=== PATIENT | male | born 1985 | race Caucasian/White ===

== ENCOUNTER 2017-04-18 06:40 | Day surgery (SDC) | payer BC ==
[~2017-04-18 06:40] MED LIST: Lactated Ringers 1,000 ML IV SCH; Sodium Chloride 0.9% 10 ML Syringe FLUSH PRN; Sodium Chloride 0.9% 2.5 ML Syringe FLUSH PRN
[2017-04-18] MEDS ORDERED: Midazolam 1 MG/ML 2 ML SDV ONE (07:15)
[2017-04-18] MEDS ORDERED: fentaNYL 100 MCG/2 ML SDV ONE (07:15)
[2017-04-18] MEDS ORDERED: Propofol 200 MG/20 ML SDV ONE (07:15)
[2017-04-18] MEDS ORDERED: Lidocaine 2% 5 ML SDV ONE (07:15)
[2017-04-18] MEDS ORDERED: Ondansetron 4 MG/2 ML SDV ONE (07:15)
[2017-04-18] MEDS ORDERED: Bupivacaine 0.5% 10 ML SDV ONE (07:20)
[2017-04-18] MEDS ORDERED: Lidocaine 1% 20 ML MDV ONE (07:21)
[2017-04-18] MEDS ORDERED: Heparin Sodium 100 Units/ML 3 ML Syringe ONE (07:21)
[2017-04-18] MEDS ORDERED: Bupivacaine 0.5% 30 ML SDV ONE (07:22)
--- NOTE | 2017-04-18 07:27 | PCM.PREANE ---
Preanesthetic Assessment - Anesthesia/Transfusion/Family Hx Anesthesia History: Prior Anesthesia Without Reaction Family History of Anesthesia Reaction: No Transfusion History: No Prior Transfusion(s) - Review of Systems General: No Symptoms Pulmonary: No Symptoms Cardiovascular: No Symptoms Gastrointestinal: No Symptoms Neurological: No Symptoms Other: Reports: None - Physical Assessment NPO Status Date: 04/17/17 O2 Sat by Pulse Oximetry: 100 Respiratory Rate: 16 Vital Signs: Last Vital Signs Temp 36.4 C 04/18/17 06:56 Pulse 82 04/18/17 06:56 Resp 16 04/18/17 06:56 BP 131/89 04/18/17 06:56 Pulse Ox 100 04/18/17 06:56 Height: 1.7 m Weight: 78.925 kg ASA Class: 2 Mental Status: Alert & Oriented x3 Airway Class: Mallampati = 1 Dentition: Reports: Goodell(s) ROM/Head Extension: Full Lungs: Clear to Auscultation, Normal Respiratory Effort Cardiovascular: Regular Rate, Regular Rhythm - Allergies Allergies/Adverse Reactions: Allergies Allergy/AdvReac Type Severity Reaction Status Date / Time No Known Allergies Allergy Verified 04/13/17 15:56 - Anesthesia Plan Pre-Op Medication Ordered: None - Acknowledgements Anesthesia Type Planned: General Anesthesia Pt an Appropriate Candidate for the Planned Anesthesia: Yes Alternatives and Risks of Anesthesia Discussed w Pt/Guardian: Yes Pt/Guardian Understands and Agrees with Anesthesia Plan: Yes PreAnesthesia Questionnaire HEENT History: Reports: Other (See Below) Other HEENT History: wears glasses Musculoskeletal History: Reports: Fracture Other Musculoskeletal History: fx ankle and stress fx of hip Oncologic (Cancer) History: Reports: Other (See Below) Other Oncologic History: testicular - Past Surgical History Head Surgeries/Procedures: Reports: None Male Surgical History: Reports: Other (See Below) Other Male Surgeries/Procedures: rt orchiectomy and pelvic lymphadecectomy - SUBSTANCE USE Tobacco Use Within Last Twelve Months: Other (See Below) Recreational Drug Use History: No - HOME MEDS Home Medications: Home Meds . [No Known Home Meds] 04/13/17 [History] - CURRENT (IN HOUSE) MEDS Current Meds: Current Medications Lactated Ringer's (Ringers, Lactated) 1,000 mls @ 125 mls/hr IV ASDIRECTED [facility] Last Admin: 04/18/17 06:53 Dose: 125 mls/hr Sodium Chloride (Saline Flush) 10 ml FLUSH ASDIRECTED PRN PRN Reason: Keep Vein Open Sodium Chloride (Saline Flush) 2.5 ml FLUSH ASDIRECTED PRN PRN Reason: Keep Vein Open Discontinued Medications Bupivacaine HCl (Sensorcaine-Mpf 0.5%) Confirm Administered Dose 10 ml .ROUTE .STK-MED ONE Stop: 04/18/17 07:21 Bupivacaine HCl (Marcaine 0.5%) Confirm Administered Dose 30 ml .ROUTE .STK-MED ONE Stop: 04/18/17 07:23 Fentanyl (Sublimaze) Confirm Administered Dose 100 mcg .ROUTE .STK-MED ONE Stop: 04/18/17 07:16 Heparin Sodium (Porcine) (Heparin Lock Flush 100 Units/Ml) Confirm Administered Dose 900 unit .ROUTE .STK-MED ONE Stop: 04/18/17 07:22 Lidocaine (Xylocaine-Mpf 2%) Confirm Administered Dose 5 ml .ROUTE .STK-MED ONE Stop: 04/18/17 07:16 Lidocaine HCl (Xylocaine 1%) Confirm Administered Dose 20 ml .ROUTE .STK-MED ONE Stop: 04/18/17 07:22 Midazolam HCl (Versed 1 Mg/Ml) Confirm Administered Dose 2 mg .ROUTE .STK-MED ONE Stop: 04/18/17 07:16 Ondansetron HCl (Zofran) Confirm Administered Dose 4 mg .ROUTE .STK-MED ONE Stop: 04/18/17 07:16 Propofol (Diprivan 20 Ml) Confirm Administered Dose 200 mg .ROUTE .STK-MED ONE Stop: 04/18/17 07:16
[2017-04-18] MEDS ORDERED: fentaNYL 100 MCG/2 ML SDV IVPUSH PRN (08:27)
[2017-04-18] MEDS ORDERED: Octyl 2-Cyanoacrylate 1 Tube ONE (08:40)
--- NOTE | 2017-04-18 08:54 | PCM.OPNOTE ---
- General Post-Op/Procedure Note Date of Surgery/Procedure: 04/18/17 Operative Procedure(s): Right internal jugular port placement Findings: right internal jugular port placement Pre Op Diagnosis: Testicular cancer Post-Op Diagnosis: Same Anesthesia Technique: MAC Primary Surgeon: Nahomi Cade Condition: Good
--- NOTE | 2017-04-18 09:38 | PCM.POSTAN ---
POST ANESTHESIA ASSESSMENT - MENTAL STATUS Mental Status: Alert, Oriented - RESPIRATORY Respiratory Status: Respiratory Rate WNL, Airway Patent, O2 Saturation Stable - CARDIOVASCULAR CV Status: Pulse Rate WNL, Blood Pressure Stable - GASTROINTESTINAL GI Status: No Symptoms - POST OP HYDRATION Hydration Status: Adequate & Stable
--- NOTE | 2017-04-18 09:39 | PCM48HPAN ---
Post Anesthesia Note - EVALUATION WITHIN 48HRS OF ANESTHETIC Vital Signs in Normal Range: Yes Patient Participated in Evaluation: Yes Respiratory Function Stable: Yes Airway Patent: Yes Cardiovascular Function Stable: Yes Hydration Status Stable: Yes Pain Control Satisfactory: Yes Nausea and Vomiting Control Satisfactory: Yes Mental Status Recovered: Yes
--- NOTE | 2017-04-18 09:53 | OR ---
SURGEON: RICH YUN MD DATE OF PROCEDURE: 04/18/2017 PREOPERATIVE DIAGNOSIS: Testicular cancer. POSTOPERATIVE DIAGNOSIS: Testicular cancer. PROCEDURE PERFORMED: Right internal jugular Port-A-Cath placement. ANESTHESIA: General LMA. ESTIMATED BLOOD LOSS: 10 mL. FINDINGS: Right internal jugular Port-A-Cath placement. COMPLICATIONS: None. INDICATIONS: The patient is a 32-year-old male with testicular cancer with positive nodes. The patient will be starting chemotherapy soon and is in need of a port. We discussed the procedure as well as expected perioperative course. We discussed the risks, including bleeding, infection, or damage to surrounding structures, including hemothorax or pneumothorax. The patient verbalized understanding and wishes to proceed. PROCEDURE IN DETAIL: The patient was brought into the operating room and placed on the OR table in supine position. A time-out was completed verifying the patient's information. General LMA anesthesia was induced. An ultrasound was brought in and I verified the vascular anatomy of the neck. I was able to identify the right internal jugular vein and right carotid. Photograph was taken and printed. The neck and chest were then prepped and draped in the usual standard fashion after the patient's bilateral arms had been tucked and shoulder roll placed under his shoulders. The ultrasound was brought in again to verify the anatomy on the right side of the neck. 0.5% Marcaine and 1% lidocaine plain were both used to anesthetize the right lower neck and right upper chest wall. A large bore needle was then placed under direct visualization into the right internal jugular vein. Venous blood was aspirated and a guidewire placed down the needle. Fluoroscopy was brought in to verify placement of the guidewire down the right internal jugular vein into the vena cava. I then turned my attention to the right anterior chest wall. A 4 cm incision was made approximately two-fingerbreadths below the right lateral clavicle on the chest wall. Cautery was used to dissect down to the chest wall and then create a subcutaneous pocket. Once this was completed, a tunneling device was used to tunnel the Port-A-Cath tubing from the chest wall site to the right neck guidewire site. The vein was then dilated under fluoroscopic guidance using a dilator sheath and vascular sheath device. The guidewire and dilator were removed and the catheter tubing placed down the vascular sheath. This was then peeled away leaving the catheter tubing and placed in the SVC. Fluoroscopy was used to pull the catheter tubing back into the SVC at an appropriate length. An x-ray was taken and saved. The catheter tubing was aspirated and flushed with injectable saline. The catheter tubing was then trimmed to fit and placed on the Port-A-Cath device. This was aspirated using a Rangel needle and injectable saline. Good venous return was obtained. The Port-A-Cath device was locked with 3 mL of heparinized saline. The Port-A-Cath was then placed into the subcutaneous pocket and secured with two interrupted 2-0 Vicryl on either side of the Port-A-Cath device. The tissue overlying the port was closed with interrupted 3-0 Vicryl in the subcutaneous space and with a running 4-0 Monocryl suture in the subcuticular space. The neck insertion site was closed with interrupted 4-0 Monocryl. Both sites were covered in Dermabond. The port was then accessed with a Rangel needle. Sterile dressings were applied. The patient tolerated the procedure well and was taken to the PACU in stable condition. ROM GREGORY /[id number] DUSTIN
--- NOTE | 2017-04-18 09:58 | CR ---
EXAMINATION: Portable chest radiograph. HISTORY: Port-A-Cath placement. FINDINGS: The trachea is midline. The cardiomediastinal silhouette is within normal limits. No pulmonary infilt rates, effusions or pneumothorax. There is a right-sided Port-A-Cath noted with tip in good position. Osseous structures appear unremarkable. IMPRESSION: No acute cardiopulmonary process.
[2017-04-18 10:01] VITALS: BP 128/83
== END 2017-04-18 10:09 | disposition home or self-care (01) ==
LOC: MW.SDS 06:40
PROVIDERS: ATTEND Surgery
PROC: 05HM33Z Insertion of Infusion Device into Right Internal Jugular Vein, Percutaneous Approach (ICD-10-PCS; principal; 2017-04-18)
DX: C62.90 Malignant neoplasm of unspecified testis, unspecified whether descended or undescended (principal); Z98.890 Other specified postprocedural states
CPT/HCPCS: 36561; 71010; 76000; A9270; J1642; J2250; J2405; J3010; J7120; 00532; C1788; J2704

== ENCOUNTER 2017-05-02 13:24 | Observation (INO) | payer BC ==
[2017-05-02] MEDS ORDERED: Sodium Chloride 0.9% 1,000 ML IV ONE (13:50)
[2017-05-02] MEDS ORDERED: Ondansetron 4 MG/2 ML SDV IVPUSH ONE (13:51)
[2017-05-02] MEDS ORDERED: Acetaminophen 500 MG Tab PO ONE (13:52)
[2017-05-02] MEDS ORDERED: Ketorolac 30 MG/ML SDV IVPUSH ONE (13:52)
--- NOTE | 2017-05-02 13:58 | EDM.PDOC ---
ED HPI GENERAL MEDICAL PROBLEM - General Chief Complaint: Fever Stated Complaint: FEVER Time Seen by Provider: 05/02/17 13:29 - History of Present Illness INITIAL COMMENTS - FREE TEXT/NARRATIVE: HISTORY AND PHYSICAL: History of present illness: The patient is a 32-year-old male with a known history of testicular cancer which was diagnosed in March and has been on chemotherapy with his last round finishing on April 22, these rounds which are 5 times a week. The patient states that with his prior chemotherapy he has never had a fever but he does have nausea. The patient says that yesterday he started having fevers ranging from 100.9-101.6 a is not taking any medicine today. He says he has a sore throat is a cough occasionally productive of phlegm and generalized body aches and malaise. He has no sinus congestion or drainage no headache no chest pain or shortness of breath and no abdominal pain. He has had some loose stools and some nausea but no vomiting. The patient contacted the clinic who referred him here for evaluation and care. The patient says that his girlfriend with whom he lives works at a daycare. Review of systems: As per history of present illness and below otherwise all systems reviewed and negative. Past medical history: As per history of present illness and as reviewed below otherwise noncontributory. Surgical history: As per history of present illness and as reviewed below otherwise noncontributory. Social history: No reported history of drug or alcohol abuse. Family history: As per history of present illness and as reviewed below otherwise noncontributory. Physical exam: Gen.: Well-developed well-nourished male who is nontoxic and was temperature of my evaluation is 101.3. He speaking clearly and easily and he has a slight flushing of his face. HEENT: Atraumatic, normocephalic, pupils reactive, negative for conjunctival pallor or scleral icterus, mucous membranes moist, throat clear of exudates but there is posterior oropharyngeal erythema, uvula is midline, there is shotty anterior cervical adenopathy and no posterior adenopathy or nuchal rigidity, neck supple, nontender, trachea midline. Lungs: Clear to auscultation, breath sounds equal bilaterally, chest nontender. No worker breathing or sensory muscle use. Patient has a port in the anterior chest wall. Heart: S1S2, regular rhythm but slightly tachycardic rate of my evaluation, negative for clicks, rubs, or JVD. Abdomen: Soft, nondistended, nontender. Negative for masses or hepatosplenomegaly. Negative for costovertebral tenderness. Pelvis: Stable nontender. Genitourinary: Deferred. Rectal: Deferred. Extremities: Atraumatic, negative for cords or calf pain. Neurovascular unremarkable. Neuro: Awake, alert, oriented. Cranial nerves II through XII unremarkable. Cerebellum unremarkable. Motor and sensory unremarkable throughout. Exam nonfocal. Diagnostics: CBC CMP lactic acid blood cultures 2 UA urine culture influenza swab rapid strep chest x-ray Therapeutics: Port access IV fluids Zofran Toradol Tylenol cefepime 1527: All testing results were discussed with the patient as well as Dr. Mcmanus at this time. The patient is aware that he is neutropenic and cannot be discharged and will be admitted for observation ending the culture results. Dr. Mcmanus would like Maxipime to be given Impression: Neutropenic fever, history of testicular cancer Definitive disposition and diagnosis as appropriate pending reevaluation and review of above. throat Pain Score (Numeric/FACES): 5 - Related Data Allergies Allergy/AdvReac Type Severity Reaction Status Date / Time No Known Allergies Allergy Verified 04/13/17 15:56 Home Meds: Home Meds Ondansetron [Zofran] 4 mg PO Q8H PRN 05/02/17 [History] Past Medical History - Past Health History Medical/Surgical History: Denies Medical/Surgical History HEENT History: Reports: Other (See Below) Other HEENT History: wears glasses Musculoskeletal History: Reports: Fracture Other Musculoskeletal History: fx ankle and stress fx of hip Immunologic History: Reports: Immunosuppression Oncologic (Cancer) History: Reports: Other (See Below) Other Oncologic History: testicular - Past Surgical History Head Surgeries/Procedures: Reports: None Male Surgical History: Reports: Other (See Below) Other Male Surgeries/Procedures: rt orchiectomy and pelvic lymphadecectomy Social & Family History - Family History Family Medical History: Noncontributory - Tobacco Use Smoking Status *Q: Never Smoker Packs/Tins Daily: 1 - Recreational Drug Use Recreational Drug Use: No ED ROS GENERAL - Review of Systems Review Of Systems: ROS reveals no pertinent complaints other than HPI. ED EXAM, GENERAL - Physical Exam Exam: See Below (See dictation) Course - Vital Signs Last Recorded V/S: Last Vital Signs Temp 38.6 C H 05/02/17 14:49 Pulse 116 H 05/02/17 13:24 Resp 18 05/02/17 13:24 BP 135/88 05/02/17 13:24 Pulse Ox 96 05/02/17 13:24 - Orders/Labs/Meds Orders: Active Orders 24 hr Category Date Time Status Patient Status [ADT] Stat ADT 05/02/17 15:29 Ordered Chest 2V [CR] Stat Exams 05/02/17 13:50 Taken CULTURE BLOOD [BC] Stat Lab 05/02/17 14:00 Received CULTURE BLOOD [BC] Stat Lab 05/02/17 14:17 Received CULTURE STREP A CONFIRMATION [RM] Stat Lab 05/02/17 14:00 Results CULTURE URINE [] Stat Lab 05/02/17 14:00 Received STREP SCRN A RAPID W CULT CONF [] Stat Lab 05/02/17 14:00 Results Cefepime [Maxipime in D5W 2 GM/50 ML] 2 gm Med 05/02/17 15:28 Ordered Premix Bag 1 bag IV ONETIME Blood Culture x2 Reflex Set [OM.PC] Stat Oth 05/02/17 13:49 Ordered Labs: Laboratory Tests 05/02/17 05/02/17 05/02/17 Range/Units 14:00 14:00 14:00 WBC 1.09 L (4.0-11.0) K/uL RBC 3.99 L (4.50-5.90) M/uL Hgb 12.4 L (13.0-17.0) g/dL Hct 35.1 L (38.0-50.0) % MCV 88.0 (80.0-98.0) fL MCH 31.1 (27.0-32.0) pg MCHC 35.3 (31.0-37.0) g/dL RDW Std Deviation 35.8 (28.0-62.0) fl RDW Coeff of Vimal 11 (11.0-15.0) % Plt Count 154 (150-400) K/uL MPV 8.70 (7.40-12.00) fL Add Manual Diff YES Neutrophils % (Manual) 5 L (48.0-80.0) % Band Neutrophils % 4 % Lymphocytes % (Manual) 81 H (16.0-40.0) % Monocytes % (Manual) 7 (0.0-15.0) % Eosinophils % (Manual) 2 (0.0-7.0) % Basophils % (Manual) 1 (0.0-1.5) % Nucleated RBC % 0.0 /100WBC Absolute Seg Neuts 0.1 Band Neutrophils # 0 Lymphocytes # (Manual) 0.9 Monocytes # (Manual) 0.1 Eosinophils # (Manual) 0 Basophils # (Manual) 0 Nucleated RBCs # 0 K/uL Reactive Lymphocytes FEW Plt Morphology Comment Lactate 1.6 (0.20-2.00) mmol/L Sodium 137 (136-146) mmol/L Potassium 3.7 (3.5-5.1) mmol/L Chloride 102 (98-110) mmol/L Carbon Dioxide 26 (21-31) mmol/L BUN 7 (6.0-23.0) mg/dL Creatinine 1.1 (0.6-1.5) mg/dL Est Cr Clr Drug Dosing 92.41 mL/min Estimated GFR (MDRD) > 60.0 ml/min Glucose 132 H (60-110) mg/dL Calcium 9.0 (8.8-10.8) mg/dL Total Bilirubin 0.8 (0.1-1.5) mg/dL AST 18 (5-40) IU/L ALT 52 (8-54) IU/L Alkaline Phosphatase 51 (40-150) Total Protein 6.8 (6.0-8.0) g/dL Albumin 3.9 (3.5-5.0) g/dL Globulin 2.9 (2.0-3.5) g/dL Albumin/Globulin Ratio 1.3 (1.3-2.8) Urine Color Urine Appearance Urine pH (5.0-8.0) Ur Specific [place] (1.001-1.035) Urine Protein (NEGATIVE) mg/dL Urine Glucose (UA) (NEGATIVE) mg/dL Urine Ketones (NEGATIVE) mg/dL Urine Occult Blood (NEGATIVE) Urine Nitrite (NEGATIVE) Urine Bilirubin (NEGATIVE) Urine Urobilinogen (<2.0) EU/dL Ur Leukocyte Esterase (NEGATIVE) Urine RBC (0-2/HPF) Urine WBC (0-5/HPF) Ur Epithelial Cells (NONE-FEW) Urine Bacteria (NEGATIVE) Urine Mucus (NONE-MOD) 05/02/17 Range/Units 14:00 WBC (4.0-11.0) K/uL RBC (4.50-5.90) M/uL Hgb (13.0-17.0) g/dL Hct (38.0-50.0) % MCV (80.0-98.0) fL MCH (27.0-32.0) pg MCHC (31.0-37.0) g/dL RDW Std Deviation (28.0-62.0) fl RDW Coeff of Vimal (11.0-15.0) % Plt Count (150-400) K/uL MPV (7.40-12.00) fL Add Manual Diff Neutrophils % (Manual) (48.0-80.0) % Band Neutrophils % % Lymphocytes % (Manual) (16.0-40.0) % Monocytes % (Manual) (0.0-15.0) % Eosinophils % (Manual) (0.0-7.0) % Basophils % (Manual) (0.0-1.5) % Nucleated RBC % /100WBC Absolute Seg Neuts Band Neutrophils # Lymphocytes # (Manual) Monocytes # (Manual) Eosinophils # (Manual) Basophils # (Manual) Nucleated RBCs # K/uL Reactive Lymphocytes Plt Morphology Comment Lactate (0.20-2.00) mmol/L Sodium (136-146) mmol/L Potassium (3.5-5.1) mmol/L Chloride (98-110) mmol/L Carbon Dioxide (21-31) mmol/L BUN (6.0-23.0) mg/dL Creatinine (0.6-1.5) mg/dL Est Cr Clr Drug Dosing mL/min Estimated GFR (MDRD) ml/min Glucose (60-110) mg/dL Calcium (8.8-10.8) mg/dL Total Bilirubin (0.1-1.5) mg/dL AST (5-40) IU/L ALT (8-54) IU/L Alkaline Phosphatase (40-150) Total Protein (6.0-8.0) g/dL Albumin (3.5-5.0) g/dL Globulin (2.0-3.5) g/dL Albumin/Globulin Ratio (1.3-2.8) Urine Color YELLOW Urine Appearance CLEAR Urine pH 6.0 (5.0-8.0) Ur Specific [place] 1.015 (1.001-1.035) Urine Protein NEGATIVE (NEGATIVE) mg/dL Urine Glucose (UA) NEGATIVE (NEGATIVE) mg/dL Urine Ketones TRACE H (NEGATIVE) mg/dL Urine Occult Blood NEGATIVE (NEGATIVE) Urine Nitrite NEGATIVE (NEGATIVE) Urine Bilirubin NEGATIVE (NEGATIVE) Urine Urobilinogen 0.2 (<2.0) EU/dL Ur Leukocyte Esterase NEGATIVE (NEGATIVE) Urine RBC 0-1 (0-2/HPF) Urine WBC 0-1 (0-5/HPF) Ur Epithelial Cells RARE (NONE-FEW) Urine Bacteria RARE (NEGATIVE) Urine Mucus LIGHT (NONE-MOD) Meds: Medications Discontinued Medications Generic Name Dose Route Start Last Admin Trade Name Freq PRN Reason Stop Dose Admin Acetaminophen 1,000 mg 05/02/17 13:52 05/02/17 14:49 Tylenol Extra Strength PO 05/02/17 13:53 1,000 mg ONETIME ONE Administration Sodium Chloride 1,000 mls @ 999 mls/hr 05/02/17 13:50 05/02/17 14:48 Normal Saline IV 05/02/17 14:50 999 mls/hr STAT ONE Administration Ketorolac Tromethamine 30 mg 05/02/17 13:52 05/02/17 14:49 Toradol IVPUSH 05/02/17 13:53 30 mg ONETIME ONE Administration Ondansetron HCl 4 mg 05/02/17 13:51 05/02/17 14:49 Zofran IVPUSH 05/02/17 13:52 4 mg ONETIME ONE Administration Departure - Departure Time of Disposition: 15:31 Disposition: Refer to Observation Condition: Good Clinical Impression: Neutropenic fever - Discharge Information Referrals: PCP,None [Primary Care Provider] - Forms: ED Department Discharge - My Orders Last 24 Hours: My Active Orders 05/02/17 13:49 Blood Culture x2 Reflex Set [OM.PC] Stat 05/02/17 13:50 Chest 2V [CR] Stat 05/02/17 14:00 CULTURE BLOOD [BC] Stat CULTURE STREP A CONFIRMATION [RM] Stat CULTURE URINE [RM] Stat STREP SCRN A RAPID W CULT CONF [RM] Stat 05/02/17 14:17 CULTURE BLOOD [BC] Stat 05/02/17 15:28 Cefepime [Maxipime in D5W 2 GM/50 ML] 2 gm Premix Bag 1 bag IV ONETIME 05/02/17 15:29 Patient Status [ADT] Stat - Assessment/Plan Last 24 Hours: My Active Orders 05/02/17 13:49 Blood Culture x2 Reflex Set [OM.PC] Stat 05/02/17 13:50 Chest 2V [CR] Stat 05/02/17 14:00 CULTURE BLOOD [BC] Stat CULTURE STREP A CONFIRMATION [RM] Stat CULTURE URINE [RM] Stat STREP SCRN A RAPID W CULT CONF [RM] Stat 05/02/17 14:17 CULTURE BLOOD [BC] Stat 05/02/17 15:28 Cefepime [Maxipime in D5W 2 GM/50 ML] 2 gm Premix Bag 1 bag IV ONETIME 05/02/17 15:29 Patient Status [ADT] Stat
[2017-05-02 14:41] LABS: CHLORIDE,CL 102 mmol/L (98-110); SODIUM,NA 137 mmol/L (136-146)
[2017-05-02] MEDS ORDERED: Cefepime 2 GM in Premix Bag 1 BAG IV ONE (15:28)
--- NOTE | 2017-05-02 16:55 | CR ---
EXAM DATE: 05/02/17 PATIENT'S AGE: 32 Patient: BENJAMIN SOLORIO Facility: [place], [place] Site . Site : 1985 Study: XRay Chest [id number] 2:46:25 PM Ordering Physician: Abelardo Smith Final Report: INDICATION: Pain. Shortness of breath. Technique: PA and lateral chest x-ray. Comparison: Chest x-ray 04/18/2017. Findings: Right Port-A-Cath unchanged. Heart size normal. No focal infiltrate or consolidation in either lung. Chest otherwise unremarkable without acute disease. Dictated by Zack Castano MD @ May 02 2017 2:49PM (Electronic Signature) Report Signed by Proxy. DUSTIN
[2017-05-02] MEDS ORDERED: Ondansetron 4 MG/2 ML SDV IVPUSH PRN (19:26)
--- NOTE | 2017-05-02 19:29 | PCM.HP ---
H&P History of Present Illness - General Admit Problem/Dx: Admission Diagnosis/Problem Admission Diagnosis/Problem Neutropenia associated with infection - History of Present Illness Initial Comments - Free Text/Narative: 32 yo male with pmh of testicular cancer currently being treated with chemotherapy who presents with two day history of fevers. He reports some mild cough, sore throat, and loose stools. throat Pain Score (Numeric/FACES): 5 - Related Data Allergies/Adverse Reactions: Allergies Allergy/AdvReac Type Severity Reaction Status Date / Time No Known Allergies Allergy Verified 04/13/17 15:56 Home Medications: Home Meds Ondansetron [Zofran] 4 mg PO Q8H PRN 05/02/17 [History] Aprepitant [Emend] 125 mg IV ASDIRECTED 05/03/17 [History] CISplatin 40 mg IV ASDIRECTED 05/03/17 [History] Etoposide 195 mg IV ASDIRECTED 05/03/17 [History] Past Medical History - Past Health History Medical/Surgical History: Denies Medical/Surgical History HEENT History: Reports: Other (See Below) Other HEENT History: wears glasses Musculoskeletal History: Reports: Fracture Other Musculoskeletal History: fx ankle and stress fx of hip Psychiatric History: Reports: Anxiety Immunologic History: Reports: Immunosuppression Oncologic (Cancer) History: Reports: Other (See Below) Other Oncologic History: testicular - Past Surgical History Male Surgical History: Reports: Other (See Below) Other Male Surgeries/Procedures: rt orchiectomy and pelvic lymphadecectomy Social & Family History - Family History Family Medical History: Noncontributory - Tobacco Use Smoking Status *Q: Never Smoker Packs/Tins Daily: 1 Second Hand Smoke Exposure: No - Caffeine Use Caffeine Use: Reports: None - Recreational Drug Use Recreational Drug Use: No H&P Review of Systems - Review of Systems: Review Of Systems: ROS reveals no pertinent complaints other than HPI. Exam - Exam Exam: See Below - Vital Signs Vital Signs: Last Vital Signs Temp 36.6 C 05/02/17 16:27 Pulse 90 05/02/17 16:27 Resp 20 05/02/17 16:27 BP 119/65 05/02/17 16:27 Pulse Ox 98 05/02/17 16:27 Weight: 83.461 kg - Exam General: Alert, Oriented, 4 HEENT: Mucosa Moist & [place], Nares Patent, Posterior Pharynx Clear Neck: Supple Lungs: Clear to Auscultation, Normal Respiratory Effort Cardiovascular: Regular Rate, Regular Rhythm GI/Abdominal Exam: Normal Bowel Sounds, Soft, Non-Tender, No Distention Extremities: Normal Inspection, Normal Range of Motion, Non-Tender, No Pedal Edema Skin: Warm, Dry, Intact. No: Rash Neurological: No: Focal Deficit - Patient Data Result Diagrams: 05/03/17 06:26 05/03/17 06:26 *Q Meaningful Use (ADM) - VTE *Q VTE Criteria *Q: - Stroke *Q Stroke Criteria *Q: - AMI *Q AMI Criteria *Q: Problem List Initiated/Reviewed/Updated: Yes Orders Last 24hrs: Active Orders 24 hr Category Date Time Status Cefepime [Maxipime in D5W 2 GM/50 ML] 2 gm Med 05/03/17 00:00 Ordered Premix Bag 1 bag IV Q8H Medication Orders Cefepime HCl 2 gm/ Premix 50 mls @ 100 mls/hr IV Q8H ANNITA Assessment/Plan Comment:: 32 yo male with testicular cancer who presents with neutropenic fever. Blood culture obtained from port and periphery. Will treat with cefepime.
[2017-05-02] MEDS: Sodium Chloride 0.9% 1,000 ML IV SCH (19:53)
[2017-05-03] MEDS: Cefepime 2 GM in Premix Bag 1 BAG IV SCH ×4 (00:03→23:55)
[2017-05-03] MEDS: Benzocaine/Cetylpyridinium/Menthol Lozenge MUCMEM PRN ×2 (01:14→06:32)
[2017-05-03] MEDS: Sodium Chloride 0.9% 1,000 ML IV SCH ×3 (04:36→23:38)
[2017-05-03 06:55] LABS: CHLORIDE,CL 110 mmol/L (98-110); SODIUM,NA 141 mmol/L (136-146)
--- NOTE | 2017-05-03 11:09 | PCM.PN ---
- General Info Date of Service: 05/03/17 Admission Dx/Problem (Free Text): Admission Diagnosis/Problem Admission Diagnosis/Problem Neutropenia associated with infection Subjective Update: Patient developed fever of 38.4 overnight along with chills and night sweats. Having mild abdominal pain. Had loose stools this morning. Patient reports ingesting herbal CBD oil by tongue which was given to him by friend the day before initial fever. Functional Status: Reports: Pain Controlled, Tolerating Diet, Ambulating, Urinating - Review of Systems General: Reports: Fever, Chills, Night Sweats HEENT: Reports: No Symptoms Pulmonary: Reports: No Symptoms Cardiovascular: Reports: No Symptoms Gastrointestinal: Reports: Abdominal Pain, Diarrhea Genitourinary: Reports: No Symptoms Musculoskeletal: Reports: No Symptoms Neurological: Reports: No Symptoms Psychiatric: Reports: No Symptoms - Patient Data Vitals - Most Recent: Last Vital Signs Temp 37.2 C 05/03/17 08:11 Pulse 74 05/03/17 08:11 Resp 20 05/03/17 08:11 BP 106/57 L 05/03/17 08:11 Pulse Ox 98 05/03/17 08:11 Weight - Most Recent: 83.461 kg I&O - Last 24 Hours: Intake & Output 05/02/17 05/03/17 05/03/17 22:59 06:59 14:59 Intake Total 2450 Output Total 2050 Balance 400 Lab Results Last 24 Hours: Laboratory Results - last 24 hr 05/03/17 05/03/17 Range/Units 06:26 06:26 WBC 1.62 L (4.0-11.0) K/uL RBC 3.73 L (4.50-5.90) M/uL Hgb 11.4 L (13.0-17.0) g/dL Hct 33.0 L (38.0-50.0) % MCV 88.5 (80.0-98.0) fL MCH 30.6 (27.0-32.0) pg MCHC 34.5 (31.0-37.0) g/dL RDW Std Deviation 35.9 (28.0-62.0) fl RDW Coeff of Vimal 11 (11.0-15.0) % Plt Count 157 (150-400) K/uL MPV 8.30 (7.40-12.00) fL Add Manual Diff YES Neutrophils % (Manual) 16 L (48.0-80.0) % Lymphocytes % (Manual) 77 H (16.0-40.0) % Monocytes % (Manual) 7 (0.0-15.0) % Nucleated RBC % 0.0 /100WBC Absolute Seg Neuts 0.3 Lymphocytes # (Manual) 1.2 Monocytes # (Manual) 0.1 Nucleated RBCs # 0 K/uL Sodium 141 (136-146) mmol/L Potassium 4.0 (3.5-5.1) mmol/L Chloride 110 (98-110) mmol/L Carbon Dioxide 25 (21-31) mmol/L BUN 6 (6.0-23.0) mg/dL Creatinine 0.9 (0.6-1.5) mg/dL Est Cr Clr Drug Dosing 112.94 mL/min Estimated GFR (MDRD) > 60.0 ml/min Glucose 102 (60-110) mg/dL Calcium 8.6 L (8.8-10.8) mg/dL Med Orders - Current: Current Medications Benzocaine/Menthol (Cepacol Sore Throat) 1 lozenge MUCMEM Q4H PRN PRN Reason: Sore Throat Last Admin: 05/03/17 06:32 Dose: 1 lozenge Cefepime HCl 2 gm/ Premix 50 mls @ 100 mls/hr IV Q8H [facility] Last Admin: 05/03/17 07:32 Dose: 100 mls/hr Sodium Chloride (Normal Saline) 1,000 mls @ 125 mls/hr IV ASDIRECTED [facility] Last Admin: 05/03/17 04:36 Dose: 125 mls/hr Ondansetron HCl (Zofran) 4 mg IVPUSH Q4H PRN PRN Reason: Nausea Discontinued Medications Acetaminophen (Tylenol Extra Strength) 1,000 mg PO ONETIME ONE Stop: 05/02/17 13:53 Last Admin: 05/02/17 14:49 Dose: 1,000 mg Sodium Chloride (Normal Saline) 1,000 mls @ 999 mls/hr IV STAT ONE Stop: 05/02/17 14:50 Last Admin: 05/02/17 14:48 Dose: 999 mls/hr Cefepime HCl 2 gm/ Premix 50 mls @ 100 mls/hr IV ONETIME ONE Stop: 05/02/17 15:57 Last Admin: 05/02/17 16:28 Dose: 100 mls/hr Ketorolac Tromethamine (Toradol) 30 mg IVPUSH ONETIME ONE Stop: 05/02/17 13:53 Last Admin: 05/02/17 14:49 Dose: 30 mg Ondansetron HCl (Zofran) 4 mg IVPUSH ONETIME ONE Stop: 05/02/17 13:52 Last Admin: 05/02/17 14:49 Dose: 4 mg - Exam General: Alert, Oriented, Cooperative, No Acute Distress HEENT: Pupils Equal, Pupils Reactive Neck: Supple Lungs: Clear to Auscultation, Normal Respiratory Effort Cardiovascular: Regular Rate, Regular Rhythm GI/Abdominal Exam: Normal Bowel Sounds, Soft, Non-Tender, No Organomegaly, No Distention Extremities: Normal Inspection, Normal Range of Motion, Non-Tender, No Pedal Edema, Normal Capillary Refill Skin: Warm, Dry, Intact Neurological: No New Focal Deficit Psy/Mental Status: Alert, Normal Affect, Normal Mood - Problem List Review Problem List Initiated/Reviewed/Updated: Yes - Plan Plan:: 32 yo male with testicular cancer who presents with neutropenic fever. Fever recurred overnight, measuring 38.4. Diarrhea and mild abdominal pain this morning. Neutropenic Fever: Continue Cefepime. f/u cultures. hold anti-pyretics. monitor. Diarrhea: obtain stool sample for culture.
[2017-05-04 05:28] LABS: CHLORIDE,CL 110 mmol/L (98-110); SODIUM,NA 140 mmol/L (136-146)
[2017-05-04] MEDS: Cefepime 2 GM in Premix Bag 1 BAG IV SCH (08:14)
[2017-05-04 09:23] VITALS: BP 119/76
--- NOTE | 2017-05-04 10:17 | PCM.DCSUM1 ---
Discharge Summary - Hospital Course Free Text/Narrative:: 32 year old male with history of Testicular Cancer admitted on 05/02 for neutropenic fever. He was treated with Cefepime IV. He was monitored until his temp was normal for 24 hours. His T max in past 24 hours was 37.8 degrees. He was completely asymptomatic. He has f/u appointment scheduled with his manufacturing production manager Dr. Umaña on 05/09/17. He will be discharged home on Augmentin 875 mg BID and Ciprofloxacin 750 mg QD for 11 days to total 14 days of antibiotic therapy. He was instructed to not undergo chemo until he is seen by Dr. Patterson. - Discharge Data Discharge Date: 05/04/17 Discharge Disposition: Home, Self-Care 01 Condition: Good - Patient Instructions Diet: Regular Diet as Tolerated Activity: As Tolerated Driving: May Drive Today Showering/Bathing: May Shower Notify Provider of: Fever, Increased Pain, Swelling and Redness, Drainage, Nausea and/or Vomiting - Discharge Plan Prescriptions/Med Rec: Amoxicillin/Potassium Clav [Augmentin 875-125 Tablet] 1 each PO BID 11 Days #22 tablet Ciprofloxacin HCl 750 mg PO DAILY #11 tablet Home Medications: Home Meds Ondansetron [Zofran] 4 mg PO Q8H PRN 05/02/17 [History] Amoxicillin/Potassium Clav [Augmentin 875-125 Tablet] 1 each PO BID 11 Days #22 tablet 05/04/17 [Rx] Ciprofloxacin HCl 750 mg PO DAILY #11 tablet 05/04/17 [Rx] - Patient Data Vitals - Most Recent: Last Vital Signs Temp 36.7 C 05/04/17 08:00 Pulse 70 05/04/17 08:00 Resp 18 05/04/17 08:00 BP 119/76 05/04/17 08:00 Pulse Ox 99 05/04/17 08:00 Weight - Most Recent: 83.461 kg I&O - Last 24 hours: Intake & Output 05/03/17 05/04/17 05/04/17 22:59 06:59 14:59 Intake Total 2917 1931 Output Total 1950 1800 Balance 967 131 Lab Results - Last 24 hrs: Laboratory Results - last 24 hr 05/04/17 05/04/17 Range/Units 04:55 04:55 WBC 1.77 L (4.0-11.0) K/uL RBC 3.68 L (4.50-5.90) M/uL Hgb 11.3 L (13.0-17.0) g/dL Hct 32.4 L (38.0-50.0) % MCV 88.0 (80.0-98.0) fL MCH 30.7 (27.0-32.0) pg MCHC 34.9 (31.0-37.0) g/dL RDW Std Deviation 35.9 (28.0-62.0) fl RDW Coeff of Vimal 12 (11.0-15.0) % Plt Count 198 (150-400) K/uL MPV 8.60 (7.40-12.00) fL Add Manual Diff YES Neutrophils % (Manual) 2 L (48.0-80.0) % Lymphocytes % (Manual) 90 H (16.0-40.0) % Monocytes % (Manual) 8 (0.0-15.0) % Nucleated RBC % 0.0 /100WBC Absolute Seg Neuts 0 Lymphocytes # (Manual) 1.6 Monocytes # (Manual) 0.1 Nucleated RBCs # 0 K/uL Sodium 140 (136-146) mmol/L Potassium 4.0 (3.5-5.1) mmol/L Chloride 110 (98-110) mmol/L Carbon Dioxide 23 (21-31) mmol/L BUN 5 L (6.0-23.0) mg/dL Creatinine 0.9 (0.6-1.5) mg/dL Est Cr Clr Drug Dosing 112.94 mL/min Estimated GFR (MDRD) > 60.0 ml/min Glucose 117 H (60-110) mg/dL Calcium 8.8 (8.8-10.8) mg/dL Med Orders - Current: Current Medications Benzocaine/Menthol (Cepacol Sore Throat) 1 lozenge MUCMEM Q4H PRN PRN Reason: Sore Throat Last Admin: 05/03/17 06:32 Dose: 1 lozenge Cefepime HCl 2 gm/ Premix 50 mls @ 100 mls/hr IV Q8H [facility] Last Admin: 05/04/17 08:14 Dose: 100 mls/hr Sodium Chloride (Normal Saline) 1,000 mls @ 125 mls/hr IV ASDIRECTED [facility] Last Admin: 05/03/17 23:38 Dose: 125 mls/hr Ondansetron HCl (Zofran) 4 mg IVPUSH Q4H PRN PRN Reason: Nausea Discontinued Medications Acetaminophen (Tylenol Extra Strength) 1,000 mg PO ONETIME ONE Stop: 05/02/17 13:53 Last Admin: 05/02/17 14:49 Dose: 1,000 mg Sodium Chloride (Normal Saline) 1,000 mls @ 999 mls/hr IV STAT ONE Stop: 05/02/17 14:50 Last Admin: 05/02/17 14:48 Dose: 999 mls/hr Cefepime HCl 2 gm/ Premix 50 mls @ 100 mls/hr IV ONETIME ONE Stop: 05/02/17 15:57 Last Admin: 05/02/17 16:28 Dose: 100 mls/hr Ketorolac Tromethamine (Toradol) 30 mg IVPUSH ONETIME ONE Stop: 05/02/17 13:53 Last Admin: 05/02/17 14:49 Dose: 30 mg Ondansetron HCl (Zofran) 4 mg IVPUSH ONETIME ONE Stop: 05/02/17 13:52 Last Admin: 05/02/17 14:49 Dose: 4 mg *Q Meaningful Use (DIS) - VTE *Q VTE Criteria *Q: - Stroke *Q Stroke Criteria *Q: - AMI *Q AMI Criteria *Q:
== END 2017-05-04 12:25 | disposition home or self-care (01) ==
LOC: MW.ED 13:24 → MW.MS 15:29 → UNDOADMOB 16:18 → MW.MS 16:18
PROVIDERS: ADMIT Internal Medicine; ATTEND Internal Medicine
DX: D70.3 Neutropenia due to infection (principal); R50.81 Fever presenting with conditions classified elsewhere; C62.90 Malignant neoplasm of unspecified testis, unspecified whether descended or undescended; R19.7 Diarrhea, unspecified; R10.9 Unspecified abdominal pain; Z90.89 Acquired absence of other organs; Z98.890 Other specified postprocedural states
CPT/HCPCS: 36415; 71020; 80048; 80053; 81001; 83605; 85025; 87040; 87081; 87086; 87804; 87880; 96361; 96365; 96366; 96375; 99285; A9270; G0378; J0692; J1885; J2405; J7040; 96374; 99283